=== PATIENT | male | born 1990 | race Two or more races ===

== ENCOUNTER 2021-09-12 21:46 | Emergency (ER) | payer OTHER ==
[~2021-09-12] VITALS: Ht 167.6 cm; Wt 79.4 kg
[~2021-09-12 21:46] MED LIST: PROPRANOLOL
== END 2021-09-13 03:40 | disposition home or self-care (01) ==
LOC: ER 21:46
DX: K52.9 Noninfective gastroenteritis and colitis, unspecified (principal); R11.11 Vomiting without nausea; R19.7 Diarrhea, unspecified; Z20.822 Contact with and (suspected) exposure to COVID-19